=== PATIENT | male | born 1985 | race Caucasian/White ===

== ENCOUNTER 2018-11-05 13:44 | Emergency (ER) | payer OTHER ==
[~2018-11-05] VITALS: Ht 162.6 cm; Wt 104.3 kg
[2018-11-05] MEDS ORDERED: LIDOCAINE HCL 1% LOCAL INJ 20 ML VIAL INJ ONE (14:00)
[2018-11-05] MEDS ORDERED: BACITRACIN ZINC 0.9GM TP ONE (14:45)
== END 2018-11-05 15:01 | disposition home or self-care (01) ==
LOC: ER 13:44
DX: S51.812A Laceration without foreign body of left forearm, initial encounter (principal)
CPT/HCPCS: 12002; 99283; J2001